=== PATIENT | male | born 1980 | race Asian ===

== ENCOUNTER → 2024-12-13 | Day surgery (SDC) | payer BC | LOC: SDC 14:08 | PROVIDERS: ATTEND Internal Medicine Gastroenterology | PROC: 4A0B8BZ Measurement of Gastrointestinal Pressure, Via Natural or Artificial Opening Endoscopic (ICD-10-PCS; principal; 2024-12-13) | DX: K21.9 Gastro-esophageal reflux disease without esophagitis (principal) | CPT/HCPCS: 91010 ==

== ENCOUNTER 2025-04-08 08:33 | Outpatient (CLI) | payer BC ==
[2025-04-08] MEDS ORDERED: Bacteriostatic Normal Saline 30 ML VIAL ONE (10:10)
[2025-04-08] MEDS ORDERED: Sincalide 5 MCG VIAL ONE (10:10)
== END 2025-04-08 08:34 | disposition home or self-care (01) ==
LOC: NM 08:33
PROVIDERS: ATTEND Physician Assistant Medical
DX: K22.4 Dyskinesia of esophagus (principal); K21.9 Gastro-esophageal reflux disease without esophagitis; K76.0 Fatty (change of) liver, not elsewhere classified; R10.11 Right upper quadrant pain
CPT/HCPCS: 78227; A9537; J2805